=== PATIENT | male | born 1935 | race Caucasian/White ===

== ENCOUNTER 2023-01-22 19:15 | Emergency (ER) | payer OTHER ==
[~2023-01-22] VITALS: Ht 185.4 cm; Wt 82.0 kg
[2023-01-22 22:04] LABS: BASOPHILS % 0.6 % (0.0-2.0); EOSINOPHILS % 0.4 % (0.0-5.0); HEMATOCRIT. 45.7 % (42.0-52.0); HEMOGLOBIN. 15.4 g/dL (14.0-18.0); LYMPHOCYTES % 25.2 % (20.0-50.0); MEAN CORPUSCULAR HEMOGLOBIN 31.4 pg (28.0-32.0); MEAN CORPUSCULAR VOLUME 93.1 fL (80.0-94.0); MEAN PLATELET VOLUME 10.1 fl (7.4-10.4); MONOCYTES % 9.9 % (2.0-8.0); NEUTROPHILS % 63.9 % (40.0-76.0); PLATELET 163 x1000/uL (130-400); RED BLOOD CELL COUNT 4.91 mill/uL (4.7-6.1); RED CELL DISTRIBUTION WIDTH 15.3 % (11.6-14.6)
[2023-01-22 22:17] LABS: CHLORIDE 104 mEq/L (98-107)
[2023-01-23] MEDS ORDERED: LORAZEPAM 2MG/ML CPJ IM ONE
[2023-01-23] MEDS ORDERED: OLANZAPINE 10 MG/VIAL IM ONE
[2023-01-23] MEDS ORDERED: IPRATROPIUM/ALBUTEROL 0.5-3(2.5)MG/3ML NEB HHN PRN (08:15)
[2023-01-23] MEDS ORDERED: CLONIDINE 0.1MG TABLET PO PRN (08:15)
[2023-01-23] MEDS ORDERED: ONDANSETRON HCL 4MG/2ML INJ IV PRN (08:15)
[2023-01-23] MEDS ORDERED: DOCUSATE SODIUM 100MG CAPSULE PO PRN (08:15)
[2023-01-23] MEDS ORDERED: GUAIFENESIN 200MG/10ML SUGAR FREE UDC PO PRN (08:15)
[2023-01-23] MEDS ORDERED: ACETAMINOPHEN 325MG TABLET PO PRN ×2 (08:15)
[2023-01-23] MEDS ORDERED: MAGNESIUM/ALUMINUM HYDROXIDE/SIMETHICONE 30ML UDC PO PRN (08:15)
[2023-01-23] MEDS ORDERED: ENOXAPARIN 40MG/0.4ML SYR SUBCUT SCH (10:00)
[2023-01-23 13:07] VITALS: BP 135/73
[2023-01-23] MEDS ORDERED: FAMOTIDINE 20MG TABLET PO SCH (21:00)
== END 2023-01-23 15:40 | disposition home or self-care (01) ==
LOC: ER 19:21 → EDBEDREQ 01-23 06:04 → EDBEDREQSVC 01-23 06:04 → EDBEDREQTM 01-23 06:04 → ER 01-23 15:40 → CANBEDREQ 01-24 16:43
DX: G93.40 Encephalopathy, unspecified (principal); I10 Essential (primary) hypertension; E78.5 Hyperlipidemia, unspecified; I25.2 Old myocardial infarction
CPT/HCPCS: 36415; 71045; 80053; 84484; 85025; 93005; 93970; 99285